=== PATIENT | female | born 1965 | race Caucasian/White ===

== ENCOUNTER → 2017-01-01 | Outpatient (CLI) | payer OTHER ==
[~2017-01-01] MED LIST: ASPI81TA28 PO; COEN1CAP28 PO; DXM/4 PO; HYDR25TA4 PO; MULT-506 PO; NLSI; ONDA8TAB6 PO; PROM25TA9 PO; SIMV20TA2 PO; SULF800T23 PO; TRAS440I2; [UNRECOGNIZED DRUG - CODE]; [UNRECOGNIZED DRUG - CODE]; [UNRECOGNIZED DRUG - CODE]
--- NOTE | 2017-01-01 15:58 | MAMMOGRAPHY REPORT ---
BILATERAL DIGITAL SCREENING MAMMOGRAM TOMOSYNTHESIS WITH CAD: 01/01/2017 CLINICAL HISTORY: Routine screening examination. TECHNIQUE: Breast tomosynthesis in addition to standard 2D mammography was performed. Current study was also evaluated with a Computer Aided Detection (CAD) system. COMPARISON: Comparison is made to exams dated: 12/29/2015 mammogram, 12/27/2014 mammogram, 11/16/2013 mammogram, and 10/22/2011 mammogram - [facility]. BREAST COMPOSITION: There are scattered areas of fibroglandular density in both breasts. FINDINGS: There is a newly visualized 11 mm mass in the upper outer middle one third of the left br east. This is best seen on cc tomosynthesis slice 15 and MLO tomosynthesis slice 10. The borders a re partially circumscribed and partially obscured. Although this could represent a cyst, definitive characterization with targeted ultrasound and possible additional mammographic views is recommended . There are 2 stable metallic biopsy marker is in the right breast. Scattered benign-appearing calcif ications bilaterally. No other suspicious mass, architectural distortion or cluster of microcalcifi cations is seen. IMPRESSION: ACR BI-RADS CATEGORY 0: INCOMPLETE EVALUATION: NEED ADDITIONAL IMAGING EVALUATION The newly visualized 11 mm mass in the left upper outer breast needs additional evaluation. The patient will be called to schedule an appointment. Approximately 10% of breast cancers are not detected with mammography. A negative mammographic repor t should not delay biopsy if a clinically suggestive mass is present. Safia Nguyễn M.D. ay/:01/01/2017 12:44:21 Medical Records Field Technician: Jackie FIGUEROA(Benito)(Rajesh), [facility] letter sent: Addl Imaging 0 BI-RADS Code: ACR BI-RADS Category 0: Incomplete Evaluation: Need Additional Imaging Evaluation
== END | disposition home or self-care (01) ==
LOC: C.MAMM 10:38
PROVIDERS: ATTEND Family Medicine
DX: Z12.31 Encounter for screening mammogram for malignant neoplasm of breast (principal); N63 Unspecified lump in breast

== ENCOUNTER → 2017-01-07 | Outpatient (CLI) | payer OTHER ==
--- NOTE | 2017-01-07 15:22 | MAMMOGRAPHY REPORT ---
ULTRASOUND OF BOTH BREASTS: 01/07/2017 CLINICAL HISTORY: 51-year-old woman with a history of 2 prior benign right breast biopsies and cyst aspiration called back from screening mammography for a newly visualized 12 mm mass in the upper out er quadrant of the left breast. COMPARISON: Comparison is made to exams dated: 01/01/2017 mammogram, 12/27/2014 mammogram, 12/29/2015 m ammogram, 07/27/2015 mammogram, 11/16/2013 mammogram, and 11/05/2012 mammogram - [facility]. FINDINGS: Targeted ultrasound was performed in the upper outer quadrant of the left breast to evalua te for the newly visualized 12 mm mass seen mammographically. In the 1:00 axis, 3 cm from the nippl e, there is a hypoechoic solid mass with microlobulated and irregular borders, measuring 10.9 x 8.6 x 11.5 mm. 2 adjacent smaller similar appearing microlobulated hypoechoic solid masses are identifi ed in the 12:00 left breast. The first is in the 12:00 breast, 3 cm from the nipple, measuring 3.6 x 3.3 x 6.8 mm, and the second is in the 12:00 breast, 2 cm from the nipple, measuring 7.2 x 2.2 x 4 .6 mm. These masses are located within 1 cm of the dominant mass in the 1:00 breast. Additional so nographic evaluation was performed in the left axilla. Several lymph nodes are identified with nato ical measurements of 1.8 and 1.5 mm. No definite suspicious adenopathy is identified. IMPRESSION: ACR BI-RADS CATEGORY 4C: MODERATE SUSPICION FOR MALIGNANCY - FOLLOW-UP RECOMMENDED 1. Ultrasound guided core biopsy is recommended in the 1:00 left breast for a new 11.5 mm solid irr egular and microlobulated mass, correlating with the newly visualized mammographic mass. 2. There are 2 smaller similar appearing solid masses in the 12:00 left breast, 2 cm and 3 cm from the nipple, that are not evident mammographically but are located within 1 cm of the dominant mass o n ultrasound. These could represent satellite lesions and further management will be decided based on pathology results from the mass in the 1:00 axis. These results and recommendations were discussed with the patient at the time of the exam. She tent atively scheduled the left breast biopsy prior to leaving our department. Safia Nguyễn M.D. ay/:01/07/2017 14:37:29 Attending Technologist: Tom VIRAMONTES)(M), [facility] Philosophy Faculty: Dr. Safia Nguyễn, [facility] letter sent: Abnormal 4/5 BI-RADS Code: ACR BI-RADS Category 4C: Moderate Suspicion For Malignancy
== END | disposition home or self-care (01) ==
LOC: C.MAMM 13:08
PROVIDERS: ATTEND Family Medicine
DX: N63 Unspecified lump in breast (principal)

== ENCOUNTER → 2017-01-15 | Outpatient (CLI) | payer OTHER ==
--- NOTE | 2017-01-15 08:36 | Discharge Instructions ---
Discharge Instructions Procedure Procedure Date: Jan 15, 2017. Reason for visit: Left Mass. Discharge Discharge Date: Jan 15, 2017. Discharge Diagnosis: post left breast ultrasound guided core biopsy Medications Restart Stopped Medication(s): May restart Aspirin this evening as long as not bleeding through bandages Instructions Activity Recommendations: Additional Limitations (see below) Return to School/Work: no limitations Recommended Home Diet: No Limitations Provider Instructions: ACTIVITY RECOMMENDATIONS: * No lifting, pushing, pulling or exercising the affected side for three days. RETURN TO SCHOOL/WORK: * You may return to work/school after the procedure, but do not perform any strenuous activities for 24 to 48 hours. MEDICATIONS: * Tylenol (two 325 mg) every four to six hours if needed for mild pain (if not allergic to Tylenol). DIET: * Resume previous diet. SPECIAL CARE INSTRUCTIONS: * Keep biopsy site dry for 24 hours. May shower after 24 hours, but do not soak (bathe) incision. * May remove Tegaderm (plastic patch) tomorrow AFTER showering. * Leave the steri-strips on for one week. Allow the steri-strips to fall off by themselves. If not off after one week, you may remove them. You may place a Bandaid crosswise over the strips, if desired. * Apply ice 10 minutes on and 10 minutes off as needed. * Wear a bra at bedtime to sleep more comfortably for 2-3 days. * Your referring physician should have the results after approximately 5 to 7 business days. * Call for unusual bleeding, fever, drainage, etc or if you have any questions call [phone] during normal business hours or after hours call Dr Nguyễn, . FOLLOW UP VISIT: Follow-up with Referring Physician as scheduled. Allergies Coded Allergies: Penicillins (Verified Allergy, 12/08/09) Tetracyclines (Verified Allergy, 12/08/09) Uncoded Allergies: N (Allergy, Unknown, 12/16/02) NFA (Allergy, Unknown, 12/16/02) PENICILLAN,DOXYCYCLINE (Allergy, Unknown, 12/16/02) DOXYCYCLINE HYCLATE (Generic Allergy) (Allergy, Y, 12/16/02) Valeria Seymour Recommendations: Call your doctor if: * Temperature above 101 degrees * Pain not relieved by pain medicine ordered * There is increased drainage or redness from any incision * You have any unanswered questions or concerns. Your Doctors Instructions noted above were prepared by provider Safia Nguyễn. Patient Signature Section: Patient Instructions Signature Page Kadie Piedra Patient (or Guardian) Signature/Date: I have read and understand the instructions given to me by my caregivers. Caregiver/RN/Doctor Signature/Date: The above-named patient and/or guardian has received patient instructions on this date. + Original Patient Signature Page (only) stays with chart. Please make copy for patient.
--- NOTE | 2017-01-15 14:25 | MAMMOGRAPHY REPORT ---
UNILATERAL LEFT DIGITAL DIAGNOSTIC MAMMOGRAM: 01/15/2017 CLINICAL HISTORY: Status post ultrasound guided core biopsy of a solid microlobulated mass in the le ft 1:00 breast. Please refer to report from left breast ultrasound guided core biopsy performed at the same time for full detail. IMPRESSION: POST PROCEDURE IMAGING FOR MARKER PLACEMENT Please refer to report from left breast ultrasound guided core biopsy performed at the same time for full detail. Approximately 10% of breast cancers are not detected with mammography. A negative mammographic repor t should not delay biopsy if a clinically suggestive mass is present. Safia Nguyễn M.D. ay/:01/15/2017 08:37:36 Huller Operator: Maria Elena Abraham, [facility] BI-RADS Code: Post Procedure Imaging For Marker Placement
--- NOTE | 2017-01-15 14:25 | MAMMOGRAPHY REPORT ---
THIS REPORT HAS BEEN AMENDED. ULTRASOUND GUIDED BIOPSY LEFT BREAST: 01/15/2017 CLINICAL HISTORY: New indeterminate solid mass in the 1:00 left breast with microlobulated margins. Patient presents for ultrasound guided core needle biopsy. COMPARISON: Comparison is made to exams dated: 01/07/2017 ultrasound, 01/01/2017 mammogram, 12/29/2015 m ammogram, and 07/27/2015 ultrasound - [facility]. PATIENT CONSENT: The procedure, risks and benefits were discussed with the patient and informed writ ten consent was obtained. Specific risks to this procedure include: bleeding, infection, puncture of adjacent structure, non-target biopsy, sampling error, metal allergy and medications reaction. PROCEDURE DESCRIPTION: A time out was performed and the righ left t breast was agreed as the site of biopsy. The skin was prepped and draped in the usual sterile fashion. The solid mass in the 1:00 le ft breast was chosen as the target for biopsy. Subcutaneous and intraparenchymal 1% buffered lidocai ne was administered as local anesthesia. A skin incision was made. Through the incision, 3 samples were taken with a 14 gauge Achieve biopsy device. A metallic marker was placed at the biopsy site. H emostasis was achieved after manual compression. The patient tolerated the procedure well and there was no immediate complication. The samples were sent to the pathology department in an appropriatel y labeled container. Postprocedure left CC and ML to the digital and tomosynthesis images were obtained. There is a new ribbon-shaped metallic biopsy marker within the mammographic mass in question. No significant post biopsy hematoma is identified. Once pathology results are available, further recommendations will b e made regarding the 2 smaller adjacent masses seen in the left 12:00 breast on the 01/07/2017 diagn ostic ultrasound. IMPRESSION: ULTRASOUND GUIDED BIOPSY Status post ultrasound guided core biopsy of an indeterminate solid mass in the 1:00 left breast, wi th biopsy marker placed at the site. The patient will receive notification of the biopsy results from her referring physician. Once pathology results are available, further recommendations will be made regarding the 2 smaller a djacent masses seen in the left 12:00 breast on the 01/07/2017 diagnostic ultrasound. Safia Nguyễn M.D. ay/:01/15/2017 09:54:28 Administrative Support Assoc: Maria Elena Abraham, [facility] AMENDMENT: 01/22/2017 Safia Nguyễn M.D. 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 No in situ componen t identified. ER and [place] positive. HER-2/cristofer equivocal. The pathology results are concordant with the imaging appearance. There are 2 smaller masses in the adjacent 12:00 left breast that remain in determinate. However, prior to definitive treatment would recommend a bilateral breast MRI. The 2 smaller masses likely warrant ultrasound guided core biopsy but will await results of MRI to see if there is any other suspicious area in either breast and then can workup everything the same time. The biopsy results as well as the new recommendations were discussed with Mrs. Piedra at 12:20 PM on 01/22/2017. These recommendations will also be faxed to her physician's office.
== END | disposition home or self-care (01) ==
LOC: C.MAMM 07:45
PROVIDERS: ATTEND Family Medicine
DX: C50.412 Malignant neoplasm of upper-outer quadrant of left female breast (principal); Z17.0 Estrogen receptor positive status [ER+]

== ENCOUNTER → 2017-02-03 | Outpatient (CLI) | payer OTHER ==
[~2017-02-03] MED LIST changes: +GADAVIST IV PRN
--- NOTE | 2017-02-04 12:17 | MAMMOGRAPHY REPORT ---
BREAST MRI OF BOTH BREASTS : 02/03/2017 CLINICAL HISTORY: 51-year-old woman with newly diagnosed left breast cancer in the 1:00 axis. She p resents for preoperative evaluation of extent of disease. COMPARISON: Comparison is made to exams dated: 01/15/2017 ultrasound biopsy, 01/07/2017 ultrasound, 01/01/2017 mammogram, 12/29/2015 mammogram, 07/27/2015 ultrasound, and 07/27/2015 mammogram - [facility]. TECHNIQUE: Using a 1.5 Gilma magnet and dedicated breast coil, multisequence axial images were obtai roberto through the breasts. After uneventful IV administration of 4.9 mL of Gadavist, dynamic multipha se contrast-enhanced axial images, and sagittal postcontrast were obtained. Temporal subtraction ax ial images and 3-D MIP images are provided. Everything was then reviewed on a 3-D workstation, [facility]. FINDINGS: Right breast: There is mild background parenchymal enhancement of the right breast. There is a 5 mm intramammary lymph node in the 9:00 middle to posterior right breast. This has also been stable ma mmographically dating back to at least 2009. There is susceptibility artifact from 2 metallic biops y markers with in the right 10:00 posterior and 12:00 anterior breast, denoting sites of prior benig n biopsies. No suspicious enhancing mass, non-mass enhancement, suspicious kinetics or architectura l distortion is seen in the right breast. There is no focal skin thickening or nipple retraction. No suspicious right axillary lymphadenopathy. Left breast: There is mild background parenchymal enhancement of the left breast. There is a domina nt enhancing irregular mass with associated internal biopsy marker measuring 11 x 11 x 13 mm in the 1:00 middle one third of the left breast, denoting the biopsy proven cancer. There is a smaller min imally enhancing 4.5 x 4.6 x 4.4 mm mass located 1 cm anterosuperior to the dominant biopsied mass, likely correlating with one of the smaller hypoechoic masses seen in the 12:00 left breast on recent diagnostic ultrasound. Another possible smaller 3 mm mass is seen just lateral to this smaller, 4. 6 mm mass measuring 3.3 mm. This is identified on axial image 56/116, but does not definitely persi st on the sagittal images and there is no associated enhancement. No other suspicious enhancing mas s, non-mass enhancement, architectural distortion or suspicious kinetics are seen in the left breast . There is no skin thickening or nipple retraction. The retromammary fat is intact. No suspicious left axillary, internal mammary or subpectoral lymphadenopathy is identified. IMPRESSION: ACR BI-RADS CATEGORY 4B: INTERMEDIATE SUSPICION FOR MALIGNANCY 1. Second look ultrasound with possible ultrasound-guided core needle biopsy 2 is recommended for subcentimeter hypoechoic masses in the 12:00 left breast, 3 cm from the nipple and 2 cm from the nip ple, seen on prior diagnostic ultrasound dated 01/07/2017. Only one of these masses is definitely i dentified on the current MRI and demonstrates minimal enhancement. Nevertheless, given their sonogr aphic appearance they remain indeterminate, and biopsy is needed to exclude satellite lesions. 2. Dominant 13 mm enhancing mass in the 1:00 left breast represents the biopsy-proven carcinoma. N o suspicious left axillary, subpectoral or internal mammary lymphadenopathy is identified. No skin thickening or pectoralis muscle invasion identified. 3. Evidence of prior biopsies within the right breast, without MRI evidence of malignancy. The patient will be called to schedule an appointment. Safia Nguyễn M.D. ay/:02/03/2017 23:40:28 Ground Service Equipment Mechanic: sewer builder, [facility] letter sent: Abnormal 4/5 BI-RADS Code: ACR BI-RADS Category 4B: Intermediate Suspicion For Malignancy
== END | disposition home or self-care (01) ==
LOC: C.MRI 09:57
PROVIDERS: ATTEND Family Medicine
DX: C50.912 Malignant neoplasm of unspecified site of left female breast (principal); N63 Unspecified lump in breast

== ENCOUNTER → 2017-02-11 | Outpatient (CLI) | payer OTHER ==
[~2017-02-11] MED LIST changes: -GADAVIST IV PRN
--- NOTE | 2017-02-11 11:31 | Discharge Instructions ---
Discharge Instructions Procedure Procedure Date: Feb 11, 2017. Reason for visit: Left Masses. Discharge Discharge Date: Feb 11, 2017. Discharge Diagnosis: post left breast ultrasound guided core biopsy x 2 in the 12:00 axis Instructions Activity Recommendations: Additional Limitations (see below) Return to School/Work: no limitations Recommended Home Diet: No Limitations Provider Instructions: ACTIVITY RECOMMENDATIONS: * No lifting, pushing, pulling or exercising the affected side for three days. RETURN TO SCHOOL/WORK: * You may return to work/school after the procedure, but do not perform any strenuous activities for 24 to 48 hours. MEDICATIONS: * Tylenol (two 325 mg) every four to six hours if needed for mild pain (if not allergic to Tylenol). DIET: * Resume previous diet. SPECIAL CARE INSTRUCTIONS: * Keep biopsy site dry for 24 hours. May shower after 24 hours, but do not soak (bathe) incision. * May remove Tegaderm (plastic patch) tomorrow AFTER showering. * Leave the steri-strips on for one week. Allow the steri-strips to fall off by themselves. If not off after one week, you may remove them. You may place a Bandaid crosswise over the strips, if desired. * Apply ice 10 minutes on and 10 minutes off as needed. * Wear a bra at bedtime to sleep more comfortably for 2-3 days. * Your referring physician should have the results after approximately 5 to 7 business days. * Call for unusual bleeding, fever, drainage, etc or if you have any questions call [phone] during normal business hours or after hours call Dr Nguyễn, . FOLLOW UP VISIT: Follow-up with Referring Physician as scheduled. Allergies Coded Allergies: Penicillins (Verified Allergy, Unknown, 02/03/17) Tetracyclines (Verified Allergy, Unknown, DOXYCYCLINE, 02/03/17) Valeria Seymour Recommendations: Call your doctor if: * Temperature above 101 degrees * Pain not relieved by pain medicine ordered * There is increased drainage or redness from any incision * You have any unanswered questions or concerns. Your Doctors Instructions noted above were prepared by provider Safia Nguyễn. Patient Signature Section: Patient Instructions Signature Page Kadie Piedra Patient (or Guardian) Signature/Date: I have read and understand the instructions given to me by my caregivers. Caregiver/RN/Doctor Signature/Date: The above-named patient and/or guardian has received patient instructions on this date. + Original Patient Signature Page (only) stays with chart. Please make copy for patient.
--- NOTE | 2017-02-11 15:16 | MAMMOGRAPHY REPORT ---
MULTIPLE ULTRASOUND GUIDED BIOPSIES LEFT BREAST: 02/11/2017 CLINICAL HISTORY: Status post ultrasound guided core biopsy 2 in the 12:00 axis of the left breast. Recent history of biopsy-proven left breast cancer in the 1:00 axis. Please refer to the report from left breast ultrasound-guided core biopsy performed at the same time for full detail. IMPRESSION: ULTRASOUND GUIDED BIOPSY Please refer to the report from left breast ultrasound-guided core biopsy performed at the same time for full detail. Safia Nguyễn M.D. ay/:02/11/2017 12:37:49 Attending Technologist: Smiley VIRAMONTES)(M), [facility] Citrus Fruit Colorer: Dr. Safia Nguyễn, [facility]
--- NOTE | 2017-02-11 15:16 | MAMMOGRAPHY REPORT ---
MULTIPLE ULTRASOUND GUIDED BIOPSIES LEFT BREAST: 02/11/2017 CLINICAL HISTORY: 51-year-old woman with newly diagnosed left breast cancer in the 1:00 axis. She p resents for ultrasound-guided core biopsy of 2 smaller hypoechoic solid-appearing masses in the 12:0 0 left breast located 2 cm from the nipple and 3 cm from the nipple. COMPARISON: Comparison is made to exams dated: 02/03/2017 breast MRI, 01/15/2017 mammogram, 01/15/2017 ultrasound biopsy, 01/07/2017 ultrasound, 01/01/2017 mammogram, and 12/29/2015 mammogram - [facility]. PATIENT CONSENT: The procedure, risks and benefits were discussed with the patient and informed writ ten consent was obtained. Specific risks to this procedure include: bleeding, infection, puncture of adjacent structure, nontarget biopsy, sampling error and medication reaction. PROCEDURE DESCRIPTION: First repeat targeted ultrasound was performed in the 12:00 axis of the left breast to reevaluate the hypoechoic solid appearing masses seen on prior ultrasound. In the 2:00 an d 3:00 axes of the left breast, lobulated hypoechoic masses are again identified and are amenable to ultrasound-guided core biopsy. A time out was performed and the left breast was agreed as the sites of biopsy. The skin was prepped and draped in the usual sterile fashion. The solid appearing mass in the 12:00 breast, 2 cm from th e nipple was first chosen as target for biopsy. Subcutaneous and intraparenchymal 1% buffered lidoca ine without epinephrine was administered as local anesthesia. A skin incision was made. Through the incision, 2 samples were taken with a 14 gauge Achieve biopsy device. A lock-shaped metallic marker was placed at the biopsy site. Hemostasis was achieved after manual compression. The patient tolera samuel the procedure well and there was no immediate complication. Then the lobulated hypoechoic solid-appearing mass in the 12:00 left breast, 3 cm from the nipple wa s identified and targeted for biopsy. Additional 1% buffered lidocaine without epinephrine was admi nistered. A second small skin incision was made. Through the incision, 2 samples were taken with a 14 gauge Achieve biopsy device. A wing-shaped metallic marker was placed at the biopsy site. Hemost asis was achieved after manual compression. The patient tolerated the procedure well and there was n o immediate complication. All of the samples were sent expedited to the pathology department in darshan ropriately labeled containers. Postprocedure left CC and MLO tomosynthesis images were obtained. 2 new metallic biopsy markers are seen in the 12:00 axis of the left breast. No significant postbiopsy hematoma is identified. Anno tations were made on the postprocedure left ML view describing the shape of the biopsy marker clips. IMPRESSION: ULTRASOUND GUIDED BIOPSY Status post ultrasound-guided core needle biopsy of 2 indeterminate hypoechoic masses in the 12:00 l eft breast located 2 cm from the nipple and 3 cm from the nipple, with biopsy markers placed at each site. The patient will receive notification of the biopsy results from referring physician. Safia Nguyễn M.D. ay/:02/11/2017 12:47:38 Attending Technologist: Smiley VIRAMONTES)(Rajesh), [facility] Enterprise Security Architect: Dr. Safia Nguyễn, [facility]
--- NOTE | 2017-02-11 15:18 | MAMMOGRAPHY REPORT ---
UNILATERAL LEFT DIGITAL DIAGNOSTIC MAMMOGRAM TOMOSYNTHESIS: 02/11/2017 CLINICAL HISTORY: Status post biopsy of 2 small indeterminate solid-appearing masses in the 12:00 le ft breast. Recent biopsy proven cancer in the 1:00 left breast. Please refer to the report from left breast ultrasound-guided core biopsy performed at the same time for full detail. IMPRESSION: POST PROCEDURE IMAGING FOR MARKER PLACEMENT Please refer to the report from left breast ultrasound-guided core biopsy performed at the same time for full detail. Approximately 10% of breast cancers are not detected with mammography. A negative mammographic repor t should not delay biopsy if a clinically suggestive mass is present. Safia Nguyễn M.D. ay/:02/11/2017 12:41:45 Paper Wood Cutter: Smiley VIRAMONTES)(M), [facility] BI-RADS Code: Post Procedure Imaging For Marker Placement
== END | disposition home or self-care (01) ==
LOC: C.MAMM 10:06
PROVIDERS: ATTEND Surgery
DX: N63 Unspecified lump in breast (principal); N60.12 Diffuse cystic mastopathy of left breast; N60.22 Fibroadenosis of left breast

== ENCOUNTER 2017-03-16 09:45 | Emergency (ER) | payer OTHER ==
[~2017-03-16] VITALS: Ht 152.4 cm; Wt 50.8 kg
[2017-03-16 09:47] VITALS: TEMP 36.7; Ht 152.4 cm; Wt 50.8 kg
[2017-03-16 10:31] LABS: URINE APPEARANCE CLEAR (CLEAR); URINE BILIRUBIN NEG (NEG); URINE COLOR YELLOW; URINE NITRITE NEG (NEG); URINE PH 7.5 (4.5-7.5); URINE SPECIFIC GRAVITY 1.005 (1.000-1.030); UROBILINOGEN NEG (NEG)
[2017-03-16 10:34] LABS: MANUAL MICROSCOPIC REQUIRED? NO; REVIEW REQ? NO
[2017-03-16 10:44] LABS: BUN/CREATININE RATIO 16.5 (10-20); CALCIUM 8.9 mg/dl (8.5-10.1); CREATININE 0.65 mg/dl (0.60-1.20); POTASSIUM 3.5 mmol/L (3.5-5.1)
[2017-03-16] MEDS ORDERED: SIMV20TA2 PO (10:44)
[2017-03-16] MEDS ORDERED: NLSI (10:44)
[2017-03-16] MEDS ORDERED: ASPI81TA28 PO (10:44)
[2017-03-16] MEDS ORDERED: [UNRECOGNIZED DRUG - CODE] (10:44)
[2017-03-16] MEDS ORDERED: TRAS440I2 (10:44)
[2017-03-16] MEDS ORDERED: ONDA8TAB6 PO (10:44)
[2017-03-16] MEDS ORDERED: HYDR25TA4 PO (10:44)
[2017-03-16] MEDS ORDERED: [UNRECOGNIZED DRUG - CODE] (10:44)
[2017-03-16] MEDS ORDERED: COEN1CAP28 PO (10:44)
[2017-03-16] MEDS ORDERED: DXM/4 PO ×2 (10:44)
[2017-03-16] MEDS ORDERED: PROM25TA9 PO (10:44)
[2017-03-16] MEDS ORDERED: MULT-506 PO (10:44)
[2017-03-16] MEDS ORDERED: [UNRECOGNIZED DRUG - CODE] (10:44)
--- NOTE | 2017-03-16 10:48 | DIAGNOSTIC IMAGING REPORT ---
CT OF THE ABDOMEN AND PELVIS WITHOUT CONTRAST, STONE PROTOCOL CLINICAL HISTORY: Right flank pain and hematuria. Breast cancer. COMPARISON STUDY: None. TECHNIQUE: Helical axial images of the abdomen and pelvis were obtained without IV or oral contrast according to renal stone protocol. FINDINGS: A few tiny right lower lobe nodules are likely benign. No hydronephrosis is present. There are no renal calculi. The course of the ureters is difficult to follow on this exam but no convincing ureteral calculi are noted. A 2.6 cm water attenuation lesion within the midpole of the right kidney likely reflects a cyst but is suboptimally assessed on this unenhanced exam. Evaluation of the abdomen and pelvis is suboptimal on this unenhanced exam. Unenhanced images of liver, spleen, adrenal glands and pancreas are normal. There is no evidence for a bowel obstruction. The appendix is likely visualized and appears normal. There is no ascites. No suspicious skeletal lesions are identified. IMPRESSION: 1. No urinary calculi or hydronephrosis. The course of the ureters is difficult to follow on this exam but pelvic calcifications likely reflect phleboliths. 2. No acute process within the abdomen or pelvis although evaluation compromised given the lack of IV contrast and paucity of intra-abdominal fat. Electronically signed by: Chano Phillips M.D. 03/16/2017 10:46 AM Dictated Date/Time: 03/16/2017 10:36 AM
[2017-03-16 10:58] LABS: HEMATOCRIT 37.6 % (37-47); MEAN CELL VOLUME 88.1 fL (80-100); MEAN CORPUSCULAR HEMOGLOBIN 31.1 pg (25-34); MEAN CORPUSCULAR HGB CONC 35.4 g/dl (32-36); MEAN PLATELET VOLUME 10.5 fL (7.4-10.4); PLATELET COUNT 102 K/uL (130-400); RED BLOOD COUNT 4.27 M/uL (4.2-5.4); WHITE BLOOD COUNT 1.73 K/uL (4.8-10.8)
[2017-03-16 11:09] LABS: BASO % 3.5 %; BASO ABS # 0.06 K/uL (0-0.2); COMPLETE YES; HYPOSEGMENTED POLYS 2+; IG% 5.8 %; LYMPH % 42.8 %; LYMPH ABS # 0.74 K/uL (1.2-3.4); MONO % 4.6 %; NEUT % 39.3 %
[2017-03-16] MEDS ORDERED: CEFTRIAXONE SOD INJ 1 GM ADDVIAL IV STA (11:17)
[2017-03-16] MEDS ORDERED: SULF800T23 PO (11:39)
[2017-03-16 12:03] VITALS: BP 129/81; PULSE 83; O2SAT 99
--- NOTE | 2017-03-16 16:55 | EMERGENCY ROOM VISIT NOTE ---
History Report prepared by Lidia: Wilma Shaffer Under the Supervision of: Dr. Brandon Sen M.D. First contact with patient: 09:54 Chief Complaint: URINARY SYMPTOMS Stated Complaint: LEAKING URINE, PINKY TINGE, CHEMO PATIENT History of Present Illness The patient is a 51 year old female who presents to the Emergency Room with complaints of an episode of urinary symptoms starting this morning. She states that she woke up, ate breakfast and noticed that she was leaking urine. She states that it didn't stop and that she noticed it had a pink tinge to it. The patient reports that she started chemotherapy for breast cancer in the left breast five days ago. She states that this was her first treatment. She notes that she does not have any burning with the urination. The patient states that she has mild achiness in her right flank. She currently rates her pain as a 3/ 10 in severity. She notes that she has had this leaky urine before when she had a bladder infection. She denies a history of kidney stones. She notes she is on medication to control her blood pressure and her cholesterol. Pt denies LOC, headache, fevers, chills, diaphoresis, visual changes, neck pain, chest pain, breathing difficulties, nausea, vomiting, abdominal pain, melena, hematochezia, numbness, weakness, lymphadenopathy, rash, or other complaints. Source of History: patient Onset: this morning Position: other (global) Symptom Intensity: 3/10 Quality: other (global) Timing: other (episode) Associated Symptoms: + back pain Review of Systems See HPI for pertinent positives and negatives. A total of ten systems were reviewed and were otherwise negative. Past Medical & Surgical Medical Problems: (1) Breast cancer (2) Hypercholesteremia (3) Hypertension Surgical Problems: (1) S/P hysterectomy Family History No pertinent family history Social History Smoking Status: Never Smoker Marital Status: Housing Status: lives with family Current/Historical Medications Scheduled Aspirin (Aspirin Ec), 81 MG PO DAILY Coenzyme Q10 (Ubidecarenone) (Co Q10), 100 MG PO DAILY Dexamethasone (Decadron), 2 TAB PO HS Dexamethasone (Decadron), 4 MG PO DAILY Hydrochlorothiazide (Hctz), 25 MG PO DAILY Multivitamin (Multivitamin), 1 TAB PO DAILY Simvastatin (Zocor), 20 MG PO QPM Sulfa/Trimethoprim (Bactrim Ds 800MG/160MG), 1 TAB PO BID Scheduled PRN Ondansetron Hcl (Zofran), 8 MG PO Q8 PRN for Nausea Promethazine Hcl (Phenergan), 25 MG PO Q4H PRN for Nausea Miscellaneous Medications Carboplatin (Carboplatin) Docetaxel (Taxotere) Pegfilgrastim (Neulasta) Pertuzumab (Perjeta) Trastuzumab (Herceptin) Allergies Coded Allergies: Penicillins (Verified Allergy, Unknown, 03/16/17) Tetracyclines (Verified Allergy, Unknown, DOXYCYCLINE, 03/16/17) Physical Exam Vital Signs Date Time Temp Pulse Resp B/P Pulse Ox O2 Delivery O2 Flow Rate FiO2 03/16/17 12:03 83 129/81 99 03/16/17 10:51 85 114/79 98 03/16/17 09:47 36.7 96 20 159/80 99 Room Air Physical Exam GENERAL: Awake, alert, well-appearing, in no distress HENT: Normocephalic, atraumatic. Oropharynx unremarkable. EYES: Normal conjunctiva. Sclera non-icteric. NECK: Supple. No nuchal rigidity. FROM. No JVD. RESPIRATORY: Clear to auscultation. CARDIAC: Regular rate, normal rhythm. Extremities warm and well perfused. Pulses equal. ABDOMEN: Soft, non-distended. Mild suprapubic tenderness to palpation. No rebound or guarding. No masses. RECTAL: Deferred. MUSCULOSKELETAL: Chest examination reveals no tenderness. The back is symmetrical on inspection without obvious abnormality. There is right CVA tenderness to palpation. No joint edema. LOWER EXTREMITIES: Calves are equal size bilaterally and non-tender. No edema. No discoloration. NEURO: Normal sensorium. No sensory or motor deficits noted. SKIN: No rash or jaundice noted. Medical Decision & Procedures ER Provider Diagnostic Interpretation: Radiology results as stated below per my review and radiologist interpretation: CT OF THE ABDOMEN AND PELVIS WITHOUT CONTRAST, STONE PROTOCOL CLINICAL HISTORY: Right flank pain and hematuria. Breast cancer. COMPARISON STUDY: None. TECHNIQUE: Helical axial images of the abdomen and pelvis were obtained without IV or oral contrast according to renal stone protocol. FINDINGS: A few tiny right lower lobe nodules are likely benign. No hydronephrosis is present. There are no renal calculi. The course of the ureters is difficult to follow on this exam but no convincing ureteral calculi are noted. A 2.6 cm water attenuation lesion within the midpole of the right kidney likely reflects a cyst but is suboptimally assessed on this unenhanced exam. Evaluation of the abdomen and pelvis is suboptimal on this unenhanced exam. Unenhanced images of liver, spleen, adrenal glands and pancreas are normal. There is no evidence for a bowel obstruction. The appendix is likely visualized and appears normal. There is no ascites. No suspicious skeletal lesions are identified. IMPRESSION: 1. No urinary calculi or hydronephrosis. The course of the ureters is difficult to follow on this exam but pelvic calcifications likely reflect phleboliths. 2. No acute process within the abdomen or pelvis although evaluation compromised given the lack of IV contrast and paucity of intra-abdominal fat. Electronically signed by: Chano Phillips M.D. 03/16/2017 10:46 AM Dictated Date/Time: 03/16/2017 10:36 AM Laboratory Results 03/16/17 10:15 Red Blood Count 4.27, Mean Corpuscular Volume 88.1, Mean Corpuscular Hemoglobin 31.1, Mean Corpuscular Hemoglobin Concent 35.4, Mean Platelet Volume 10.5, Neutrophils (%) (Auto) 39.3, Lymphocytes (%) (Auto) 42.8, Monocytes (%) (Auto) 4.6, Eosinophils (%) (Auto) 4.0, Basophils (%) (Auto) 3.5, Neutrophils # (Auto) 0.68, Lymphocytes # (Auto) 0.74, Monocytes # (Auto) 0.08, Eosinophils # (Auto) 0.07, Basophils # (Auto) 0.06 03/16/17 10:15 Test 03/16/17 09:58 03/16/17 10:15 Urine Color YELLOW Urine Appearance CLEAR (CLEAR) Urine pH 7.5 (4.5-7.5) Urine Specific [place] 1.005 (1.000-1.030) Urine Protein NEG (NEG) Urine Glucose (UA) NEG (NEG) Urine Ketones NEG (NEG) Urine Occult Blood 2+ (NEG) Urine Nitrite NEG (NEG) Urine Bilirubin NEG (NEG) Urine Urobilinogen NEG (NEG) Urine Leukocyte Esterase TRACE (NEG) Urine WBC (Auto) 0 /hpf (0-5) Urine RBC (Auto) 0-4 /hpf (0-4) Urine Hyaline Casts (Auto) 0 /lpf (0-5) Urine Epithelial Cells (Auto) 5-10 /lpf (0-5) Urine Bacteria (Auto) NEG (NEG) White Blood Count 1.73 K/uL (4.8-10.8) Red Blood Count 4.27 M/uL (4.2-5.4) Hemoglobin 13.3 g/dL (12.0-16.0) Hematocrit 37.6 % (37-47) Mean Corpuscular Volume 88.1 fL (80-100) Mean Corpuscular Hemoglobin 31.1 pg (25-34) Mean Corpuscular Hemoglobin Concent 35.4 g/dl (32-36) Platelet Count 102 K/uL (130-400) Mean Platelet Volume 10.5 fL (7.4-10.4) Neutrophils (%) (Auto) 39.3 % Lymphocytes (%) (Auto) 42.8 % Monocytes (%) (Auto) 4.6 % Eosinophils (%) (Auto) 4.0 % Basophils (%) (Auto) 3.5 % Neutrophils # (Auto) 0.68 K/uL (1.4-6.5) Lymphocytes # (Auto) 0.74 K/uL (1.2-3.4) Monocytes # (Auto) 0.08 K/uL (0.11-0.59) Eosinophils # (Auto) 0.07 K/uL (0-0.5) Basophils # (Auto) 0.06 K/uL (0-0.2) RDW Standard Deviation 37.5 fL (36.4-46.3) RDW Coefficient of Variation 11.7 % (11.5-14.5) Immature Granulocyte % (Auto) 5.8 % Immature Granulocyte # (Auto) 0.10 K/uL (0.00-0.02) Hyposegmented Neutrophils 2+ Hypogranular Neutrophils 1+ Anion Gap 4.0 mmol/L (3-11) Est Creatinine Clear Calc Drug Dose 72.7 ml/min Estimated GFR () 118.3 Estimated GFR (Non- 102.1 BUN/Creatinine Ratio 16.5 (10-20) Calcium Level 8.9 mg/dl (8.5-10.1) Total Bilirubin 0.9 mg/dl (0.2-1) Direct Bilirubin 0.2 mg/dl (0-0.2) Aspartate Amino Transf (AST/SGOT) 35 U/L (15-37) Alanine Aminotransferase (ALT/SGPT) 52 U/L (12-78) Alkaline Phosphatase 89 U/L (45-117) Total Protein 7.6 gm/dl (6.4-8.2) Albumin 4.3 gm/dl (3.4-5.0) Lipase 119 U/L (73-393) Laboratory results reviewed by me Medications Administered Medications (Trade) Dose Ordered Sig/Gamaliel Route Start Time Stop Time Status Last Admin Dose Admin Ceftriaxone Sodium (Rocephin Inj) 1 gm NOW STAT IV 03/16/17 11:17 03/16/17 11:18 DC 03/16/17 11:30 1 GM ED Course 1000: The patient was evaluated in room B2. A complete history and physical exam was performed. 1114: I reevaluated the patient and she is feeling well. I updated her on the results and gave her Rocephin. After her CT, a bladder exam revealed that she had 854 mls in her bladder of urine and was able to urinate. Following a second bladder scan, it revealed 41 mls. 1117: Ordered Rocephin Inj 1 gm IV. 1150: I reevaluated the patient. Discussed results and discharge instructions: She verbalized understanding and agreement. The patient is ready for discharge. Medical Decision Triage Nursing notes reviewed. The patient's presentation and history were concerning for hematuria, incontinence, and right flank pain. Etiologies such as renal colic, appendicitis, diverticulitis, mesenteric ischemia, aortic pathology, infections, inflammatory bowel disease, PUD, biliary pathology, UTI, neurologic, chemotherapy related, as well as others were entertained. The patient was evaluated. She had some mild suprapubic tenderness and low right CVA tenderness. Given her history the patient had blood work obtained. Urinalysis was sent. She had CT imaging ordered. CT imaging did not reveal any significant intra-abdominal findings. Bladder is mildly distended. Bladder scan was performed and revealed a moderate amount of urine present for the patient was able to void and clear this. Given the fact that she has mild neutropenia from her chemotherapy and a urinalysis with hematuria the patient will be covered. She was given IV Rocephin. She'll be treated with oral Bactrim. She is doing quite well at this time. She is afebrile. The patient has no significant findings otherwise on blood work or imaging. If the patient worsens in any way she'll be back to the Emergency Room. I gave my usual and customary discussion regarding this issue. By the evaluation outlined above other emergent etiologies such as those listed in the differential, as well as others, were deemed relatively unlikely. The patient and family were informed about the findings as listed above. All questions were answered and they were pleased with the treatment. Return instructions were outlined and the patient was discharged in stable condition. The patient was referred to oncology for follow-up for a recheck of the current condition. The chart was completed utilizing [employer] Speech voice recognition software. Grammatical errors, random word insertions, pronoun errors, and incomplete sentences are an occasional consequence of this system due to software limitations, ambient noise, and hardware issues. Any formal questions or concerns about the content, text, or information contained within the body of this dictation should be directly addressed to the physician for clarification. Impression Primary Impression: Urinary tract infection Additional Impressions: Hematuria Right flank pain Neutropenia Scribe Attestation The scribe's documentation has been prepared under my direction and personally reviewed by me in its entirety. I confirm that the note above accurately reflects all work, treatment, procedures, and medical decision making performed by me. Departure Information Dispostion Home / Self-Care Prescriptions Sulfa/Trimethoprim (Bactrim Ds 800MG/160MG) Tab 1 TAB PO BID, #10 TAB Prov: Brandon Sen MD 03/16/17 Referrals Smiley Au D.O. (PCP) Forms HOME CARE DOCUMENTATION FORM, IMPORTANT VISIT INFORMATION Patient Instructions My [facility] Additional Instructions Trimethoprim-Sulfamethoxazole(Bactrim DS): Take one pill twice daily for 5 days for your urine infection. All antibiotics can cause diarrhea. If this occurs and you feel worse or it does not resolve in 1-2 days follow up with your doctor or return to the Emergency Department as this could be signs of serious underlying problems. Any medication can cause an allergic reaction, stop the pills immediately and return to the ER for rash, hives, breathing difficulties, or swelling. Ibuprofen(Motrin, Advil) may be used for fever or pain. Use 600mg every six hours as needed. Take with food. Avoid using more than 2400mg in a 24 hour period. Do not use 2400mg per day for more than three consecutive days without physician direction. Prolonged inappropriate use can lead to stomach upset or ulcers. (AND/OR) Acetaminophen(Tylenol) may be used for fever or pain. Use 1000mg every six hours as needed. Avoid using more than 4000mg in a 24 hour period. Rest and drink plenty of fluids. Continue current medications. Return to the ER immediately for worsening or persistent abdominal pain, vomiting, fevers, back or flank pain, worsening of your condition, or as needed. Follow up with your oncologist tomorrow for a recheck of the current condition. Problem Qualifiers
--- NOTE | 2017-03-18 16:15 | Pharmacy Progress Note ---
ED Pharmacist Culture FollowUp Date of Service: March 18, 2017. Patient's urine cx from 03/16/17 is growing gm + cocci, only 5000 CFU/mL and no further ID is being performed by Lab. Patient had presented with c/o "leaking urine" as well as R flank pain. She was also found to be neutropenic as she had received her first round of chemo 5 days prior to presenting. She was dx with UTI + neutropenia and given Rx for 5 days of Bactrim DS 1 PO BID I reviewed the case w/ Dr Metcalf, and the recommendation is to treat this patient for a full 14 days given this is considered a complicated UTI in an immunocompromised patient. Also the question of abx efficacy was called into question as gm positive organisms in urine are likely either staph saprophyticus (which Bactrim will cover) or enterococcus (which Bactrim will not cover). I contacted the patient. She states she believes the abx is working as she currently has no urinary symptoms, no incontinence, no fever. I explained the need to complete a longer duration of abx given immunocompromise. She asked I call Rx to [facility] ([phone]): Bactrim DS 1 PO BID x 9 additional days no refills was called to this pharmacy.
== END 2017-03-16 12:04 | disposition home or self-care (01) ==
LOC: C.EDB 09:46
DX: N39.0 Urinary tract infection, site not specified (principal); R31.9 Hematuria, unspecified; R10.11 Right upper quadrant pain; R10.31 Right lower quadrant pain; D70.9 Neutropenia, unspecified; C50.912 Malignant neoplasm of unspecified site of left female breast; E78.5 Hyperlipidemia, unspecified; I10 Essential (primary) hypertension; Z90.710 Acquired absence of both cervix and uterus; Z79.82 Long term (current) use of aspirin

== ENCOUNTER → 2017-11-06 | Outpatient (CLI) | payer OTHER ==
[~2017-11-06] MED LIST changes: -DXM/4 PO; -NLSI; -SULF800T23 PO; +TAMO20TA9 PO; -[UNRECOGNIZED DRUG - CODE]; -[UNRECOGNIZED DRUG - CODE]; -[UNRECOGNIZED DRUG - CODE]
[2017-11-06 13:31] VITALS: BP 126/76; PULSE 87; TEMP 36.6; O2SAT 99
--- NOTE | 2017-11-06 16:24 | Radiation Oncology Follow-Up ---
Radiation Oncology Follow-Up Date of Visit Nov 06, 2017. Reason For Visit One-month follow-up in cancer survivorship care plan Radiation Completion Date 09/30/17 Diagnosis (1) Breast cancer of upper-outer quadrant of left female breast Status: Acute Onset Date: 01/15/2017 Histology Subtype: ductal Permanent Comment: Abnormal left breast mammogram Status post ultrasound-guided core needle biopsy 1 o'clock position 01/15/2017 Infiltrating ductal carcinoma grade 2 Estrogen receptor positive, progesterone receptor positive, HER-2/cristofer positive Status ultrasound-guided core needle biopsy left breast 12 o'clock position, benign 02/11/2017 Clinical stage TIc Status post neoadjuvant chemotherapy TCH 4 cycles Status post partial mastectomy and sentinel lymph node biopsy 06/26/2017 Stage [id number] Status post completion of radiation therapy 09/30/2017. She received 6280 cGy utilizing conventional radiation therapy. Last Edited By: Julee Gorman on Nov 06, 2017 16:16 History of Present Illness Ms. Piedra is without a family history of breast cancer. She underwent bilateral digital screening mammograms on their way 2014. This showed an increasing 1.2 cm oval mass in the right breast at the 12:00 middle depth position and an oval 6 mm mass the right breast at the 9 o'clock position. A unilateral digital diagnostic mammogram and targeted right breast ultrasound were performed on 01/05/2015. This confirmed a 1.1 x 0.7 cm partially circumscribed mass at the 12:00 middle one third of the right breast and a 0.6 cm partially circumscribed mass at the 9:00 anterior to middle one third of the right breast. Targeted ultrasound showed a cystic mass measuring 1.0 x 0.5 x 0.8 cm and 2 adjacent benign anechoic cysts. Fine-needle aspiration biopsy of these areas however were recommended. On January 18 patient underwent ultrasound- guided biopsy of the right breast at the 10:00 and 12 o'clock position. These were both benign. Case: [id number]/[id number]. Patient continued to be followed on an annual basis. She underwent bilateral digital screening mammograms on 2016. This identified a newly visualized 1.1 cm mass in the upper outer middle one third of the left breast. There were 2 stable metallic biopsy markers in the right breast. On 01/07/2017 she underwent bilateral ultrasounds. Targeted ultrasound of the upper-outer quadrant of the left breast was performed to evaluate a newly visualized 1.2 cm mass seen mammographically. At the 1:00 axis 3 cm the nipple was a hypoechoic solid mass measuring 1.1 x 0.9 x 1.2 cm. 2 adjacent smaller similar appearing microlobulated hypoechoic solid masses are also identified. The first was at the 12 o'clock position 3 cm Alvarez from the nipple measuring 0.4 x 0.3 x 0.7 cm. The second was at the 12 o'clock position 2 cm the nipple measuring 0.7 x 0.2 x 0.5 cm. Ultrasound-guided core biopsy was recommended. On 01/15/2017 patient underwent ultrasound-guided core biopsies of the left breast at the 1 o'clock position. This revealed an infiltrating ductal carcinoma of no special type. This was a Lito grade 2 with no in situ component identified. No perineural or lymphovascular space invasion was identified. Estrogen receptors were positive (90%, strong). Progesterone receptors were positive (10%, strong). HER-2/cristofer was equivocal (2+). Evaluation of HER-2/cristofer amplification by FISH was reported as positive. Case: [id number]. Patient went on to have bilateral breast MRIs on 02/03/2017. In the right breast to metallic biopsy clips were again noted. No suspicious enhancing masses, and non-mass enhancement or architectural distortion was seen. There was no focal skin thickening or nipple retraction and no suspicious right axillary lymphadenopathy identified. In the left breast there was a dominant enhancing irregular mass with the associated internal biopsy marker measuring 1.1 x 1.1 x 1.3 cm. This was located at the 1:00 middle one third of the left breast consistent with the biopsy-proven cancer. There was a smaller minimally enhancing 0.5 x 0.5 x 0.4 cm mass located 1 cm anterior superiorly to the dominant biopsied mass another possible smaller 3 mm mass is seen just lateral to this smaller 4.6 mm mass no other suspicious enhancing mass , and non-mass enhancement, architectural distortion or seen in the left breast. No skin thickening or nipple retraction is seen. No suspicious left axillary, internal mammary or subpectoral lymphadenopathy was identified. The lesion was felt to be a T1c (13 mm) invasive ductal carcinoma. On 02/11/2017 multiple ultrasound-guided biopsies of the 2 smaller hypoechoic solid appearing masses was performed. The biopsy from the 12 o'clock position 2 cm the nipple was negative for DCIS and invasive carcinoma. The biopsy from the 12 o'clock position 3 cm from the nipple was negative for DCIS and invasive carcinoma. Case: [id number]. The patient was seen by Dr. Brook Zelaya and by Dr. Aurelio Armstrong. They discussed the potential use of neoadjuvant chemotherapy. Ultimately the patient agreed and was started on Taxotere, Carboplatin, Herceptin and Perjeta. These were were given every 21 days for 4 cycles with Neulasta support. The patient tolerated this chemotherapy well. She appeared to have a good clinical response and return to see Dr. Zelaya. She discussed the possibility of a partial mastectomy and sentinel node biopsy. The patient agreed and this procedure was performed on 06/26/2017. 5 sentinel lymph nodes were identified and all 5 were negative for carcinoma. The partial mastectomy specimen from the 1 o'clock position was negative for carcinoma. Accession #: [id number]. The patient is to continue her Herceptin therapy for a total of one year. Adjuvant radiation was discussed by Dr. Zelaya. She underwent a CT simulation. She was treated with conventional radiation therapy treatment was complete 09/30/2017. She received 6200 cGy. Interim History She has been doing well over the past month. She denies any skin irritation. She did not experience any wet or dry desquamation. There is no peeling of the skin. She denies itching. She's noted no masses or tenderness and no changes of the axilla. She's had no swelling of her arm. She has been seen in follow- up by her breast surgeon and mammography was scheduled. The plan will be for her to alternate mammography and MRIs. She had been prescribed tamoxifen and instructed to start the medication when she completed radiation. She started tamoxifen on 10/01/2017. She is tolerating this very well. She had some mild muscle discomfort and joint pain. This is now resolved. She denies hot flashes. Allergies Coded Allergies: Penicillins (Verified Allergy, Unknown, 03/16/17) Tetracyclines (Verified Allergy, Unknown, DOXYCYCLINE, 03/16/17) Home Medications Scheduled Aspirin (Aspirin Ec), 81 MG PO DAILY Coenzyme Q10 (Ubidecarenone) (Co Q10), 100 MG PO DAILY Hydrochlorothiazide (Hctz), 25 MG PO DAILY Multivitamin (Multivitamin), 1 TAB PO DAILY Simvastatin (Zocor), 20 MG PO QPM Tamoxifen (Nolvadex), 20 MG PO DAILY Miscellaneous Medications Trastuzumab (Herceptin) Review of Systems Gastrointestinal: Symptoms: WNL Oral: Symptoms: Painless Ulcers Respiratory: Symptoms: WNL Urinary: Symptoms: WNL Skin: Symptoms: No Problems Breast: Right Upper Arm Measurement: 24.5 Right Mid Arm Measurement: 23.0 Right Wrist Measurement: 15.5 Left Upper Arm Measurement: 24.5 Left Mid Arm Measurement: 22.0 Left Wrist Measurement: 16.5 Arm Dominence: Right Physical Exam Vital Signs Date Time Temp Pulse Resp B/P (MAP) Pulse Ox O2 Delivery O2 Flow Rate FiO2 11/06/17 13:31 36.6 87 16 126/76 99 Fatigue: None General Appearance: no apparent distress Eyes: normal inspection, EOMI ENT: normal ENT inspection, hearing grossly normal Neck: no adenopathy, thyroid normal Respiratory/Chest: lungs clear, no respiratory distress, no accessory muscle use Breast: Breast examination reveals well-healed incisions of the left breast. There are no masses or tenderness and no axillary adenopathy. There is mild resolving hyperpigmentation. There are no skin retractions or nipple changes. Using the Paulina score cosmesis she has a good outcome. The right breast showed no masses or tenderness and no axillary adenopathy. Cardiovascular: regular rate, rhythm, no gallop, no murmur Extremities: no pedal edema Neurologic/Psychiatric: no motor/sensory deficits, alert, normal mood/affect Skin: warm/dry Pain Management Patient Reports Pain: No Pain Location: None Patient Preferred Pain Scale: 0 - 10 Initial Pain Intensity: 0.0 Pain Management Plan She does not require any pain management. Laboratory Laboratory Results: not applicable Pathology Pathology Results: not applicable Imaging Imaging Studies: not applicable Assessment & Plan Plan: She is scheduled for mammography on 01/02/2018. She has been seen by the breast surgeon and plans will be for her to undergo a recheck MRI. That is being scheduled through her office. She continues on the tamoxifen. She continues follow-up with medical oncology and receives Herceptin every 3 weeks. She is to receive this for a total of one year. Today we completed a cancer survivorship care plan. A copy the document was given to the patient. She was given a survivorship booklet. We asked her to return to our office in 6 months. She may call if she has any questions or concerns in the interim. Total Time In Follow-Up I spent 20 minutes speaking to the patient performing examination. I spent 20 minutes reviewing information in completing this note. Copy To Brook Zelaya MD; Smiley Au D.O.; Aurelio Armstrong M.D. Problem Qualifiers (1) Breast cancer of upper-outer quadrant of left female breast: Estrogen receptor status: positive Qualified Codes: C50.412 - Malignant neoplasm of upper-outer quadrant of left female breast; Z17.0 - Estrogen receptor positive status [ER+]
== END | disposition home or self-care (01) ==
LOC: C.ONC 13:17
PROVIDERS: ATTEND Physician Assistant Medical
DX: Z08 Encounter for follow-up examination after completed treatment for malignant neoplasm (principal); Z92.3 Personal history of irradiation; Z85.3 Personal history of malignant neoplasm of breast